=== PATIENT | female | born 1990 | race Caucasian/White ===

== ENCOUNTER 2020-11-06 08:36 | Inpatient (IN) | payer OTHER ==
[2020-11-06] VITALS (43 sets, daily range): BP systolic 97–138; BP diastolic 56–101
[~2020-11-06] VITALS: Ht 160 cm; Wt 75.1 kg
[2020-11-06] MEDS ORDERED: LACTATED RINGER'S 1000 ML IV STA (09:01)
[2020-11-06] MEDS ORDERED: TRANEXAMIC ACID INJection 1,000 MG in NS 100 ML IV PRN (09:05)
[2020-11-06] MEDS ORDERED: OXYTOCIN DRIP 30 UNITS in IV 1 EA IV PRN (09:05)
[2020-11-06] MEDS ORDERED: PRENTAB53 PO (09:09)
[2020-11-06] MEDS ORDERED: UNIS25TA3 PO (09:09)
[2020-11-06] MEDS ORDERED: VALT1TAB PO (09:10)
[2020-11-06] MEDS ORDERED: HOME MED LIST COMPLETE! XX SCH (09:10)
[2020-11-06] MEDS ORDERED: EPIP0.3I2 IM (09:10)
[2020-11-06] MEDS ORDERED: PROAAER10 INH (09:10)
[2020-11-06] MEDS ORDERED: BUTORPHANOL 2 MG/ML INJ (J0595) IV PRN (09:35)
[2020-11-06] MEDS ORDERED: FAMOTIDINE INJ 20MG/2ML VIAL (S0028 PER 1) IVP PRN (09:35)
[2020-11-06] MEDS ORDERED: ACETAMINOPHEN 500 MG TAB PO PRN ×2 (09:35→18:00)
[2020-11-06] MEDS ORDERED: OXYTOCIN DRIP 30 UNITS in IV 1 EA IV SCH (09:35)
[2020-11-06] MEDS ORDERED: FIORICET TAB PO ONE (09:35)
[2020-11-06] MEDS ORDERED: ONDANSETRON 4MG/2ML VIAL IV PRN ×2 (09:35→15:50)
[2020-11-06] MEDS ORDERED: PROMETHAZINE INJ 25 MG/ML VIAL (J2550) IV PRN (09:35)
[2020-11-06 10:13] LABS: HEMATOCRIT 37.5 % (36.0-47.0); HEMOGLOBIN 11.9 g/dl (12.0-15.5); MEAN CORPUSCULAR HEMOGLOBIN 27.1 pg (27.0-33.0); MEAN CORPUSCULAR HGB CONC 31.7 g/dl (32.0-36.5); MEAN CORPUSCULAR VOLUME 85.4 fl (80.0-96.0); PLATELET COUNT, AUTOMATED 195 10^3/uL (150-450); RED BLOOD COUNT 4.39 10^6/uL (4.00-5.40); WHITE BLOOD COUNT 11.8 10^3/uL (4.0-10.0)
[2020-11-06 10:36] LABS: CREATININE,RANDOM URINE 80.9 MG/DL; TOTAL PROTEIN,RANDOM URINE 11.1 MG/DL (0.0-12.0)
[2020-11-06 10:38] LABS: ALT/SGPT 15 U/L (12-78); BILIRUBIN,TOTAL 0.4 MG/DL (0.2-1.0); CREATININE FOR GFR 0.56 MG/DL (0.55-1.30); GLOMERULAR FILTRATION RATE > 60.0 (>60); LDH LACTATE DEHYDROGENASE 170 U/L (84-246)
--- NOTE | 2020-11-06 10:45 | HPEPDOC ---
Obstetrical History & Physical General Date of Admission Nov 06, 2020 at 08:36 History of Present Illness 29 yo at 41w0d with NUNO of 30 OCT 2020 was sent over from the clinic tod ay for IOL for postdates and elevated BP during her visit today. She reports a persistent mild headache since waking this morning. She denies chest pain, RUQ pain, contractions, leaking of fluid, vaginal bleeding, visual changes, and reports positive movement. Interval medical history: Asthma Rubella NI Hx of Depression/Increased stress Hx of MRSA 09/2019 Chief Complaint: Induction of labor (IOL for postdates and elevated BP in the clinic today) Information Provided By: Patient Age: 29 : 3 Term: 2 Pre-term: 0 Abortions: 0 Livin Care Care: Good Care Dating Final EDC: Oct 30, 2020 Final EDC by: LMP, 1st trimester (US) EGA at Admission: 41 (+0) Antepartum Course Height (inches): 63 Pre- weight (lbs.): 130 Admission Weight (lbs.): 165 Change in Weight (lbs.): 35 Past Medical History Past Obstetrical History #1: Past Obstetrical History: Multigravida Date of Delivery: Jun 07, 2016 Gestation: 37.4 Type of Delivery: Spontaneous Vaginal Del. Sex of Infant: Male Weight of (grams): 2240 Complications: Yes (Twin delivery) Past Obstetrical History #2: Past Obstetrical History: Multigravida Date of Delivery: Jun 07, 2016 Gestation: 37.4 Type of Delivery: Spontaneous Vaginal Del. Sex of : Male Weight of Infant (grams): 2580 Complications: Yes (Twins) Past Obstetrical History #3: Past Obstetrical History: Multigravida Date of Delivery: Apr 06, 2018 Gestation: 39.5 Type of Delivery: Spontaneous Vaginal Del. 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 History: Abnormal Pap, Human papillomavirus(HPV), History of STD Past Medical History Medical History Migraines without aura, Hx of twin delivery, Asthma, COVID 03/2020, Hx of LSIL, Hx of chlamydia, Depression, Oral HSV 1, rubella NI, Hx of MRSA 09/2019 Surgical History: Other (LEEP, Colpo, Right rotator cuff repair, Left tibula/fibula repair) Family History Significant Family History: Diabetes, Heart disease, Hypertension, Other (heart attack, stroke, dementia) Social History Marital Status: Family situation: Spouse/partner home Psychosocial History: Depression * Smoker: non-smoker Alcohol: Denies Drugs: denies Abuse Violence Screening Have you been hit/kicked/slapp: No Have you been sexually assault: No Imunizations Tdap status: current Influenza Status: current Allergies Coded Allergies: peanut (Verified Allergy, Severe, anaphylaxis, 11/06/20) Medications Scheduled Vit,Calc76/Iron/Folic (Prenatabs Rx Tablet) 1 Each Tablet, 1 TAB PO DAILY Scheduled PRN Albuterol Sulfate (Proair Hfa) 8.5 Gm Hfa.aer.ad, 2 PUFF INH Q4-6HP PRN for wheezing Doxylamine Succinate (Unisom Sleep Aid) 25 Mg Tablet, 12.5 MG PO QPMP PRN for INSOMNIA Epinephrine (Epipen 2-Garcia) 0.3 Mg/0.3 Ml Auto.injct, 1 SYRINGE IM ONCE PRN for ANAPHYLAXIS Valacyclovir HCl (Valtrex) 1,000 Mg Tablet, 1 TAB PO BIDP PRN for ITCHING/SWELLING Physical Examination Physical Examination GENERAL: Alert and oriented times three. BREAST: . ABDOMEN: Gravid and non-tender to touch. FETUS: Is vertex (VTX) by sterile vaginal examination (SVE), fetus is vertex (VTX) by Bhanu. HEART RATE: Regular rate and rhythm. LUNGS: Clear to auscultation (CTA). EXTREMITIES: No edema. No clonus. Deep tendon reflexes (DTRs) + 2. Laboratory Data 24H LABS Laboratory Tests 2 11/06/20 08:49: Serology Scanned Report Hepatitis B Testing Pertinent Laboratoy Data Blood Type: A+ RBC Antibody Screen: Negative HIV: Negative Hepatitis B: Negative Rapid Plasma Reagin: Nonreactive Rubella: Nonreactive Varicella: Immune Chlamydia/Gonorrhea: Negative Group B Streptococcus: Negative Quad Screen Test: Negative Cystic Fibrosis: Negative Steroid Therapy Steroid Therapy: No Vaginal Examination Dilation: 1cm Effacement: 50% Station: -2 Cervical Consistency: Soft Cervical Position: Middle Presentation: Cephalic presentation Position: Vertex (occiput) Assessment Heart Rate (FHR): 135 Variability: Moderate Accelerations: Present Decelerations: None Tocometer Contractions: Yes Frequency: irregular Multi-drug resistant Organism: MRSA (09/2019) Assessment/Plan Assessment IUP at 41w0d IOL for postdates and elevated BP Asthma Rubella NI Hx of depression Plan Admit and orient. Inventory Associate and consent. Diet: clear liquids. Group B Streptococcus (GBS) negative. Labs and intravenous (IV) per unit protocol. Counseled on Pitocin, cook catheter balloon, and induction of labor (IOL). Lactated Ringers (LR): Bolus 1000 mL, then at 125 mL/hr. Anticipate normal spontaneous delivery (). C-S as appropriate. Labor and Delivery Counseling Risks of vaginal delivery include but are not limited to: Bleeding, infection, injury to the vagina, pelvic structures, injury to baby, damage to the uterus, reactions to anesthesia, uterine rupture, risk of hysterectomy for life thre atening bleeding, or . Medications used to induce or augment labor may increase your risk for infection, uterine tachysystole, uterine rupture, heart rate abnormalities, need for emergency delivery or possible hysterectomy, and hemorrhage. CADY CASILLAS CNM Nov 06, 2020 09:20
--- NOTE | 2020-11-06 10:52 | IPNPDOC ---
Obstetrical Progress Note Date of Service Nov 06, 2020 Subjective 29 yo at 41w0d with NUNO of 30 OCT 2020 admitted for IOL for postdates and gHTN. She has no complaints at this time. She has supportive family at the bedside. Objective Vital Signs Date Time Temp Pulse Resp B/P (MAP) Pulse Ox O2 Delivery O2 Flow Rate FiO2 11/06/20 10:09 16 Cook balloon placed at 1041 without difficulty with 80/80 ml of NS infused into each of the uterine and vaginal balloons. Patient tolerated procedure well. Assessment Heart Rate (FHR): 125 Variability: Moderate Accelerations: Present Decelerations: None Tocometer Contractions: Yes Frequency: irregular Sterile Vaginal Examination Dilation: 1cm Effacement (%): 50% Station: -2 Cervical Consistency: Soft Cervical Position: Middle Postion/Presentation: Cephalic presentation Assessment and Plan Age: 29 : 3 Term: 2 Pre-term: 0 Abortions: 0 Livin Weeks & Days 41w0d Status: Reassuring Group B Streptococcus: Negative Anticipate: Vaginal Delivery Additional Comments She desires to eat breakfast, will start pitocin after she has finished eating. Pain management on demand per patient request. Cook balloon to be removed at 2241 tonight, unless it has been removed spontaneously. CADY CASILLAS CNM Nov 06, 2020 10:47
[2020-11-06] MEDS: LR 1,000 ML IV SCH ×3 (11:00→16:43)
[2020-11-06] MEDS ORDERED: FENTANYL 2MCG/ML ROPIVACAINE 0.2% IN 0.9% NACL 100ML IVBAG As Ordered ONE (13:27)
[2020-11-06] MEDS: ePHEDrine SULFATE 25 MG/5 ML(5MG/ML) SYRINGE IV PRN ×2 (15:07→15:48)
--- NOTE | 2020-11-06 15:26 | IPNPDOC ---
Obstetrical Progress Note Date of Service Nov 06, 2020 Subjective 29 yo at 41w0d with NUNO of 30 OCT 2020 admitted for IOL for postdates and gHTN. The cook balloon became expelled spontaneously. She is comfortable with her epidural. She has supportive family at the bedside. Objective Vital Signs Date Time Temp Pulse Resp B/P (MAP) Pulse Ox O2 Delivery O2 Flow Rate FiO2 11/06/20 12:31 88 16 101/63 (76) 11/06/20 08:57 96 Room Air 11/06/20 08:56 98.3 AROM for clear fluid Pitocin at 4 mu/min Assessment Heart Rate (FHR): 125 Variability: Moderate Accelerations: Present Decelerations: None Tocometer Contractions: Yes Frequency: regular (every 3 minutes) Sterile Vaginal Examination Dilation: 6 cm (6-7 cm) Effacement (%): 80% Station: -2 Cervical Consistency: Soft Cervical Position: Middle Postion/Presentation: Cephalic presentation Assessment and Plan Age: 29 : 3 Term: 2 Pre-term: 0 Abortions: 0 Livin Weeks & Days 41w0d Status: Reassuring Group B Streptococcus: Negative Anticipate: Vaginal Delivery CADY CASILLAS CNM Nov 06, 2020 15:26
[2020-11-06] MEDS ORDERED: EPIDURAL COMMENT XX SCH (15:50)
[2020-11-06] MEDS ORDERED: NALOXONE INJ 0.4MG/1ML VIAL (J2310 PER 1MG) IV PRN (15:50)
[2020-11-06] MEDS ORDERED: FENTANYL/ROPIVACAINE/NACL BAG 100 ML EPIDURAL SCH (15:50)
[2020-11-06] MEDS ORDERED: REFRIGERATOR IV KEYS XX PRN (15:50)
[2020-11-06] MEDS ORDERED: LACTATED RINGER'S 1000 ML IV PRN (15:50)
[2020-11-06] MEDS ORDERED: diphenhydrAMINE 50MG/ML VIAL (J1200) IV PRN (15:50)
[2020-11-06] MEDS ORDERED: EPIDURAL/PCA KEYS XX PRN (15:50)
[2020-11-06] MEDS ORDERED: ePHEDrine SULFATE 25 MG/5 ML(5MG/ML) SYRINGE As Ordered ONE (15:51)
[2020-11-06] MEDS ORDERED: DIBUCAINE 1% OINTMENT 30GM TOP PRN (18:00)
[2020-11-06] MEDS ORDERED: ACETAMINOPHEN TAB 650MG DOSE (2X325MG) PO PRN (18:00)
[2020-11-06] MEDS ORDERED: METHYLERGONOVINE MALEATE 0.2 MG TAB PO PRN (18:00)
[2020-11-06] MEDS ORDERED: RHOGAM 300 MCG (1500 IU) INJ (J2790) IM SCH (18:00)
[2020-11-06] MEDS ORDERED: DOCUSATE SODIUM 100MG CAPSULE PO PRN (18:00)
[2020-11-06] MEDS ORDERED: MEASLES,MUMPS,RUBELLA VACCINE INJ (MMR-II) (90707) SC SCH (18:00)
[2020-11-06] MEDS ORDERED: IBUPROFEN 600MG TAB PO PRN (18:00)
--- NOTE | 2020-11-06 18:14 | DNPDOC ---
[facility] Delivery Note Delivery Note DATE OF DELIVERY: [id number] at 1749 PREDELIVERY DIAGNOSIS: 41 0/7 weeks' gestation and labor. POST DELIVERY DIAGNOSIS: Delivered. PROCEDURE: Spontaneous vaginal delivery [place] ENAMEL REPAIRER: Dr. Sharma ANESTHESIA: Epidural ESTIMATED BLOOD LOSS: 200 mL. FINDINGS: Weight pending. Male infant, Score 9/9, Small 1st degree perineal laceration DELIVERY SUMMARY: 29 yo G3 now P3004 at 41w0d who was admitted to labor and delivery for induction of labor due to elevated BP in clinic. She is s/p romo balloon, followed by AROM with pitocin. She progessed to C/C/+1 and felt the urge to push. With excellent maternal pushing effort, head was delivered over an intact perineum direct OA and was allowed to restitute to ANDREW. Anterior shoulder delivered without difficulty followed by remainder of body. Infant placed skin to skin on mothers abdomen. Delayed cord clamping performed x60sec. Cord was doubly clamped and cut. Placenta delivered intact. Perineum inspected with small 1st degree perineal laceration noted that was hemostatic. No repair performed. Good uterine tone noted. EBL 200cc. Mom and baby stable immediately . VERENICE SHARMA M.D. Nov 06, 2020 18:05
[2020-11-07] MEDS: IBUPROFEN 800 MG TAB PO PRN (05:12)
[2020-11-07 06:00] VITALS: BP 130/85
--- NOTE | 2020-11-07 06:59 | IPNPDOC ---
Progress Note Date of Service: Nov 07, 2020 Progress Note SUBJECT: 29 yo G3 now P3004 status post uncomplicated spontaneous vaginal delivery at 41 weeks' at approximately 1800 hours on Oct of a male infant, doing well day # 1. She has been ambulating, voiding spontaneously without issue and tolerating regular diet. Breast feeding without issue. Reports lochia is like a normal period. OBJECTIVE: VITAL SIGNS: Within normal limits, afebrile. Alert and oriented times three. Normal work of breathing Heart rate: Regular rate Abdomen: Fundus firm at U-2. Soft, NTTP. ASSESSMENT: 29 yo G3 now P3004 status post uncomplicated spontaneous vaginal delivery at 41 weeks' at approximately 1800 hours on Oct of a male infant, doing well day # 1. Vitals within normal limits, afebrile, hemodynamically stable with no evidence of infection. PLAN: 1. Discharge to home tomorrow. 2. Tylenol and Motrin for pain. 3. Encourage breast feeding and ambulation. 4. Minipill for contraception for now, planning vasectomy. Desires circumcision for baby 5. Routine PP visit in 6 weeks in clinic. 6. Discussed return precautions at length. VS, I&O, 24H, Olimpia Vital Signs/I&O Vital Signs Date Time Temp Pulse Resp B/P (MAP) Pulse Ox O2 Delivery O2 Flow Rate FiO2 11/06/20 20:05 98.2 78 16 120/72 (88) 11/06/20 19:18 98 Room Air Laboratory Data 24H LABS Laboratory Tests 2 11/06/20 08:49: Serology Scanned Report Hepatitis B Testing 11/06/20 09:55: Nucleated Red Blood Cells % (auto) 0.0, Urine Random Creatinine 80.9, Urine Random Total Protein 11.1, Glomerular Filtration Rate > 60.0, Uric Acid 6.0, Total Bilirubin 0.4, Aspartate Amino Transf (AST/SGOT) 15, Alanine Aminotransferase (ALT/SGPT) 15, Lactate Dehydrogenase 170, Syphilis Serology NONREACTIVE 11/06/20 17:20: Methicillin-Resist S.aureus DNA PCR NOT DETECTED CBC/BMP Laboratory Tests 11/06/20 09:55 VERENICE LUNA M.D. Nov 06, 2020 22:29
[2020-11-07] MEDS: LR 1,000 ML IV SCH (09:05)
[2020-11-07] MEDS: PRENATAL VITAMINS CHEWABLE TABLET PO SCH (09:50)
[2020-11-07 14:00] VITALS: BP 108/61
[2020-11-07 18:00] VITALS: BP 134/81
[2020-11-08 06:00] VITALS: BP 126/86
--- NOTE | 2020-11-08 06:44 | IPNPDOC ---
Progress Note Date of Service: Nov 08, 2020 Day#: 2 Progress Note 29 yo G3 now P3004 status post uncomplicated spontaneous vaginal delivery at 41 weeks' at approximately 1800 hours on Oct of a male infant, doing well day # 2. She has been ambulating, voiding spontaneously without issue and tolerating regular diet. Breast feeding without issue. Reports lochia is like a normal period. OBJECTIVE: VITAL SIGNS: Within normal limits, afebrile. Alert and oriented times three. Normal work of breathing Heart rate: Regular rate Abdomen: Fundus firm at U-2. Soft, NTTP. ASSESSMENT: 29 yo G3 now P3004 status post uncomplicated spontaneous vaginal delivery at 41 weeks' at approximately 1800 hours on Oct of a male infant, doing well day # 1. Vitals within normal limits, afebrile, hemodynamically stable with no evidence of infection. PLAN: 1. Discharge to home today 2. Tylenol and Motrin for pain. 3. Encourage breast feeding and ambulation. 4. Minipill for contraception for now, planning vasectomy. Desires circumcision for baby 5. Routine PP visit in 6 weeks in clinic. 6. Discussed return precautions at length. VS, I&O, 24H, Fishbone Vital Signs/I&O Vital Signs Date Time Temp Pulse Resp B/P (MAP) Pulse Ox O2 Delivery O2 Flow Rate FiO2 11/07/20 18:00 97.7 71 15 134/81 (98) 96 Room Air I&O- Last 24 Hours up to 6 AM 11/08/20 06:00 Intake Total 200 ml Balance 200 ml CHARLES PEREZ MD Nov 08, 2020 5:39 am
--- NOTE | 2020-11-08 06:46 | OBDS ---
[facility] Obstetrical Discharge Sum. Obstetrical Discharge Summary Date: Nov 08, 2020 A/P, Post Course List any complications Admission diagnosis: labor Discharge diagnosis: delivery Condition at Discharge: stable Discharge Instructions: Home Activity:pelvic rest Diet: regular Medications: at [facility] Follow-up: 6wk pp 29 yo G3 now P3004 status post uncomplicated spontaneous vaginal delivery at 41 weeks' at approximately 1800 hours on 16 Aug of a male infant, doing well day # 2. She has been ambulating, voiding spontaneously without issue and tolerating regular diet. Breast feeding without issue. Reports lochia is like a normal period. OBJECTIVE: VITAL SIGNS: Within normal limits, afebrile. Alert and oriented times three. Normal work of breathing Heart rate: Regular rate Abdomen: Fundus firm at U-2. Soft, NTTP. ASSESSMENT: 29 yo G3 now P3004 status post uncomplicated spontaneous vaginal delivery at 41 weeks' at approximately 1800 hours on 16 Aug of a male infant, doing well day # 1. Vitals within normal limits, afebrile, hemo dynamically stable with no evidence of infection. PLAN: 1. Discharge to home today 2. Tylenol and Motrin for pain. 3. Encourage breast feeding and ambulation. 4. Minipill for contraception for now, planning vasectomy. Desires circumcision for baby 5. Routine PP visit in 6 weeks in clinic. 6. Discussed return precautions at length. CHARLES PEREZ MD Nov 08, 2020 6:46 am
[2020-11-08] MEDS ORDERED: IBUP80TA PO (06:49)
[2020-11-08] MEDS ORDERED: COLA100C5 PO (06:49)
[2020-11-08] MEDS ORDERED: ACET-683 PO (06:49)
[2020-11-08] MEDS: IBUPROFEN 800 MG TAB PO PRN (07:56)
[2020-11-08] MEDS: PRENATAL VITAMINS CHEWABLE TABLET PO SCH (07:56)
--- NOTE | 2020-11-10 18:43 | IPN ---
PROGRESS NOTE DATE: 11/07/2020 This patient requested circumcision of her male . After discussing risks and benefits of circumcision, the medical, the nonmedical indications, the penile block and aftercare, expressed understanding of penile block aftercare and bleeding, signed the consent form. All questions were answered. Twenty minute discussion. We await clearance by the wet finisher. cc: Erica Hernandes OB
== END 2020-11-08 14:00 | disposition home or self-care (01) | DRG 807 ==
LOC: M LDI 08:36 → M OBS 21:35
PROVIDERS: ADMIT Registered Nurse Maternal Newborn; ATTEND Registered Nurse Maternal Newborn
PROC: 10E0XZZ Delivery of Products of Conception, External Approach (ICD-10-PCS; principal; 2020-11-06)
PROC: 3E033VJ Introduction of Other Hormone into Peripheral Vein, Percutaneous Approach (ICD-10-PCS; 2020-11-06)
DX: O48.0 Post-term pregnancy (principal); Z37.0 Single live birth; Z3A.41 41 weeks gestation of pregnancy; O70.0 First degree perineal laceration during delivery

== ENCOUNTER → 2022-04-02 | Outpatient (CLI) | payer OTHER ==
[~2022-04-02] MED LIST: ACET-683 PO; COLA100C5 PO; EPIP0.3I2 IM; IBUP80TA PO; PRENTAB53 PO; PROAAER10 INH; UNIS25TA3 PO; VALT1TAB PO
== END ==
LOC: M PLALAB 07:39
PROVIDERS: ATTEND Internal Medicine Hematology
DX: I82.721 Chronic embolism and thrombosis of deep veins of right upper extremity (principal)

== ENCOUNTER → 2022-06-10 | Outpatient (REF) | payer OTHER ==
[2022-06-10 22:16] LABS: APPEARANCE, URINE CLEAR (CLEAR); BACTERIA, URINE AUTO 1+ (NEGATIVE); BILIRUBIN, URINE AUTO NEGATIVE (NEGATIVE); BLOOD, URINE BLOOD 1+ (NEGATIVE); COLOR, URINE COLORLESS (YELLOW); GLUCOSE, URINE (UA) AUTO NEGATIVE (NEGATIVE); KETONE, URINE AUTO NEGATIVE (NEGATIVE); LEUKOCYTE ESTERASE, URINE AUTO 2+ (NEGATIVE); NITRITE, URINE AUTO NEGATIVE (NEGATIVE); PROTEIN, URINE AUTO NEGATIVE (NEGATIVE); RBC, URINE AUTO 0 /HPF (0-3); SPECIFIC GRAVITY URINE AUTO 1.001 (1.002-1.035); SQUAMOUS EPITHELIAL CELL UR AU 0 /HPF (0-6); UROBILINOGEN, URINE AUTO 0.2 mg/dL (0.0-2.0); WBC, URINE AUTO 4 /HPF (0-3)
== END ==
LOC: M LAB REF 21:51
PROVIDERS: ATTEND Physician Assistant Medical
DX: N39.0 Urinary tract infection, site not specified (principal)